=== PATIENT | male | born 1950 | race Caucasian/White ===

== ENCOUNTER → 2019-05-06 | Outpatient (CLI) | payer OTHER ==
[~2019-05-06] VITALS: Ht 180.3 cm; Wt 74.8 kg
[~2019-05-06] MED LIST: ESTER-C 1,0001 EACH PO; KRILL OIL500 MG PO
--- NOTE | 2019-05-07 10:34 | P ---
[facility] [place] [address] PROCEDURE REPORT Name: NEVA CHAVIRA Room #: REG [facility]#: [id number] Admission: 05/06/19 Attend Phys: Miguel Frost MD Discharge: Date of : 54 Report #: [id number] THIS REPORT FOR: //name// CC: Miguel Koenig OUTPATIENT COLONOSCOPY REPORT BRIEF HISTORY: The patient is a 68-year-old male here for an average risk screening colonoscopy. PREOPERATIVE DIAGNOSIS: Average risk screening colonoscopy. POSTOPERATIVE DIAGNOSES: 1. Multiple colon polyps. 2. Moderately severe diverticulosis coli. 3. Small internal hemorrhoids. MEDICATIONS: Deep sedation with propofol per anesthesia. SPECIMENS: 1. Polyp, proximal ascending colon. 2. Polyps x 2, proximal transverse colon. 3. Polyp at 80 cm. ESTIMATED BLOOD LOSS: 3 mL. PROCEDURE: Colonoscopy to cecum and terminal ileum with snare polypectomy and biopsy. FINDINGS: Prior to propofol sedation, procedure of colonoscopy discussed with the patient as well as potential risks and its complications. He indicates he understands and desires to proceed. DESCRIPTION OF PROCEDURE: With the patient in left lateral decubitus position, digital examination was completed, which revealed no abnormalities. Subsequently, the Olympus video colonoscope was introduced in the rectum, advanced under direct vision to the cecum. Done with minimal difficulty. The cecum was identified by the ileocecal valve and the appendiceal orifice. I was able to visualize the distal segment of terminal ileum, which was inspected and noted to be unremarkable. At that point, the scope was slowly withdrawn and careful circumferential views were obtained. Upon slow withdrawal of the scope, the prep was good. The mucosa was within normal limits, normal vascular pattern, normal light reflex. As we withdrew the scope, he was noted to have a flat 5 mm polyp in the proximal ascending colon that was removed by cold snare polypectomy and recovered. The scope was further withdrawn and in the proximal [facility] [address] [place] [address] PROCEDURE REPORT Name: NEVA CHAVIRA Room #: REG [facility]#: [id number] Admission: 05/06/19 Attend Phys: Miguel Frost MD Discharge: Date of : 54 Report #: [id number] transverse colon, 2 diminutive polyps were seen and removed with biopsy forceps. No additional abnormalities were noted until the descending colon was reached and at 80 cm, a diminutive polyp was seen and removed with biopsy forceps. Scope was further withdrawn and no additional neoplastic lesions were seen. However, in the sigmoid colon, there was moderately severe diverticular disease without endoscopic evidence of diverticulitis. Scope was withdrawn in the rectum and upon retroflexion, no abnormalities were seen. Scope was withdrawn. The patient tolerated the procedure well. CONDITION OF THE PATIENT UPON DISCHARGE: Following procedure, the patient drowsy, aroused, conversant and will be discharged home when fully ambulatory. INSTRUCTIONS TO THE PATIENT AND FAMILY AT THE TIME OF DISCHARGE: Multiple polyps identified and removed as described above. We will follow up on the path and make further recommendations. If 3 or more polyps are adenomas, he should return in 3 years; if only 1 or 2 adenomas, then 5 years would be indicated. If none are adenomas, then he should return in 10 years. Also, suggest high-fiber diet for his diverticular disease. The withdrawal time from the cecum was 16 minutes 40 seconds and his last colonoscopy was November 1996. <ELECTRONICALLY SIGNED> By: Miguel Frost MD 05/07/19 1034 [id number] [id number] Miguel Frost MD /nt
--- NOTE | 2019-05-07 17:06 | PATH ---
[facility] [place] [address] PATHOLOGY RPT PROCEDURE Name: NAVEED WHITE Room #: REG [facility] Yan.#: [id number] Admission: 05/06/19 Date of : 54 Discharge: Report #: [id number] Path Case #: [id number] [facility] Accession Number: [id number] . 01 Material submitted: . PART A: colon - POLYP AT PROXIMAL ASCENDING COLON. Modifiers: proximal, ascending PART B: colon - POLYP AT PROXIMAL TRANSVERSE COLON X2. Modifiers: proximal, transverse PART C: colon - POLYP AT 80CM . 01 Clinical history: . Pre-OP DX: Screening Post-OP DX: Colon polyps, diverticulosis . 02 Diagnosis: A. Polyp, at proximal ascending colon, endoscopic biopsy: - Hyperplastic polyp. - Negative for dysplasia. . B. Polyp x2, at proximal transverse colon, endoscopic biopsy: - Fragments of tubular adenoma; negative for high-grade dysplasia. - One fragment showing hyperplastic polyp without any dysplasia. . C. Polyp, at 80 cm, endoscopic biopsy: - Tubular adenoma. - Negative for high-grade dysplasia. (IUV:umm; 05/07/2019) QMS 05/07/2019 1440 Local . 02 Electronically signed: . Mirian Ivan MD, Pathologist NPI- [id number] . 01 Gross description: . A. Received in formalin labeled "Naveed White, polyp at proximal ascending colon," is a 1.5 x 0.7 x 0.2 cm polypoid piece of dixon soft tissue. The margin is inked and the tissue is sectioned perpendicular to the margin and submitted entirely in cassette A1. . B. Received in formalin labeled "Naveed White, polyp at proximal transverse colon," are 2 segments of dixon soft tissue measuring 0.9 x 0.3 x 0.2 cm in aggregate dimensions and ranging from 0.4 to 0.5 cm in maximum dimension. The specimen is submitted entirely in cassette B1. . C. Received in formalin labeled "Naveed White, polyp at 80 cm," are 3 segments of dixon soft tissue measuring 1.0 x 0.7 x 0.2 [place] [address] PATHOLOGY RPT PROCEDURE Name: NAVEED WHITE [id number]: 05/06/19 Date of : 54 Discharge: Report #: [id number] Path Case #: [id number] aggregate dimensions and ranging from 0.3 to 0.4 cm in maximum dimension. The specimen is submitted entirely in cassette C1. (TSD; 05/06/2019) TOB/TOB 05/07/2019 1439 Local . 02 Pathologist provided ICD-10: K63.5, D12.3, D12.6, Z12.11 . 02 CPT . 156333, 814091, 643134 Specimen Comment: A courtesy copy of this report has been sent to Specimen Comment: [phone], . Specimen Comment: Report sent to / DR RAMACHANDRAN Performed at: [address], [place] [id number] MD Phillip Quezada MD Phone: [phone] Performed at: [address] [id number] MD Mirian Ivan MD Phone: [phone]
== END | disposition home or self-care (01) ==
LOC: GI 04-26 09:52
DX: Z12.11 Encounter for screening for malignant neoplasm of colon (principal); D12.3 Benign neoplasm of transverse colon; D12.4 Benign neoplasm of descending colon; K57.30 Diverticulosis of large intestine without perforation or abscess without bleeding; K64.8 Other hemorrhoids; Z98.890 Other specified postprocedural states; Z87.891 Personal history of nicotine dependence; Z98.41 Cataract extraction status, right eye; Z98.42 Cataract extraction status, left eye; Z88.8 Allergy status to other drugs, medicaments and biological substances
CPT/HCPCS: 62110; 62900